=== PATIENT | male | born 1955 | race Caucasian/White ===

== ENCOUNTER 2016-10-10 05:43 | Emergency (ER) | payer OTHER ==
--- NOTE | 2016-10-10 05:51 | ED Physician Documentation ---
PD HPI ABD PAIN - Stated complaint Stated Complaint: RT FLANK PAIN - History obtained from History obtained from: Patient - History of Present Illness Timing - onset: Last night Timing - duration: Hours Timing - details: Abrupt onset, Still present (worsened even more and moving down toward right side abdomen.) Quality: Aching, Sharp, Pain Location: RLQ Radiation: Right flank Improved by: No: Eating, Position, Meds (had leftover 2 percocet from kidney stone a year ago but did not help with the pain) Worsened by: No: Eating Associated symptoms: Nausea. No: Fever, Vomiting, Diarrhea, Constipation Similar symptoms before: Diagnosis (kidney stone a year ago, thatdid need basket retrival by Urologist in [place].) Review of Systems Constitutional: denies: Fever, Chills Nose: denies: Rhinorrhea / runny nose, Congestion Throat: denies: Sore throat Cardiac: denies: Chest pain / pressure Respiratory: denies: Cough GI: reports: Abdominal Pain, Nausea. denies: Vomiting, Constipation, Diarrhea : denies: Dysuria, Frequency, Discharge Skin: denies: Rash, Lesions Neurologic: denies: Near syncope PD PAST MEDICAL HISTORY - Past Medical History Cardiovascular: Hypertension Respiratory: None Endocrine/Autoimmune: None GI: None : Kidney stones HEENT: None Psych: None Musculoskeletal: None Derm: None - Past Surgical History General: Colonoscopy - Present Medications Home Medications: Ambulatory Orders Medication Instructions Recorded Confirmed Atenolol 50 mg ORAL DAILY 02/25/15 02/25/15 HYDROcod/ACETAM 5/325 [[place] 5/325] 1 - 2 ea PO Q6H PRN #15 tablet 10/02/15 Tamsulosin [Flomax] 0.4 mg PO DAILY #7 capsule 10/02/15 HYDROmorphone [Dilaudid] 2 mg PO Q4H PRN #10 tablet 10/10/16 Hydrocodone/Acetaminophen [[place] 1 each PO Q4H PRN #20 tablet 10/10/16 7.5-325 Tablet] Ondansetron Odt [Zofran] 4 mg TL Q6H PRN #15 tablet 10/10/16 Tamsulosin [Flomax] 0.4 mg PO DAILY #7 capsule 10/10/16 - Allergies Allergies/Adverse Reactions: Allergies Allergy/AdvReac Type Severity Reaction Status Date / Time No Known Drug Allergies Allergy Verified 10/02/15 09:59 - Social History Does the pt smoke?: No Smoking Status: Never smoker Does the pt drink ETOH?: Yes Does the pt have substance abuse?: No - Immunizations Immunizations are current?: Yes PD ED PE NORMAL - Vitals Vital signs reviewed: Yes - General General: Alert and oriented X 3, Well developed/nourished, Other (appears in considerable pain) - Cardiac Cardiac: RRR, No murmur - Respiratory Respiratory: Clear bilaterally - Abdomen Abdomen: Normal bowel sounds, Soft, Non distended, No organomegaly, Other (mild tender right abdomen, though palpation does not affect the pain much.) - Male Male : Deferred - Rectal Rectal: Deferred - Back Back: Other (right CVA tender to percussion) - Derm Derm: Normal color, Warm and dry, No rash - Extremities Extremities: No edema, No calf tenderness / cord - Neuro Neuro: Alert and oriented X 3, No motor deficit, Normal speech Results - Vitals Vitals: Vital Signs - 24 hr 10/10/16 10/10/16 05:50 07:14 Temperature 36.8 C Heart Rate 68 68 Respiratory 20 16 Rate Blood Pressure 157/89 H 156/83 H O2 Saturation 99 100 Oxygen O2 Source Room air - Labs Labs: Laboratory Tests 10/10/16 05:53 Urine Color YELLOW Urine Clarity HAZY Urine pH 6.0 Ur Specific [place] 1.025 Urine Protein TRACE Urine Glucose (UA) NEGATIVE Urine Ketones TRACE Urine Occult Blood LARGE H Urine Nitrite NEGATIVE Urine Bilirubin NEGATIVE Urine Urobilinogen 0.2 (NORMAL) Ur Leukocyte Esterase NEGATIVE Urine RBC TNTC H Urine WBC 4-5 Ur Squamous Epith Cells RARE Squamous Urine Crystals 0-2 Calcium Oxalate Urine Bacteria None Seen Urine Mucus Marked Strands Ur Microscopic Review INDICATED Urine Culture Comments NOT INDICATED - Rads (name of study) KUB CT Radiology: Prelim report reviewed, EMP read contemporaneously (5 mm stone in distal right ureter with moderate obstruction. ) PD MEDICAL DECISION MAKING - ED course Complexity details: reviewed results, re-evaluated patient (improved pretty well with IV meds, and is comfortable. ), considered differential, d/w patient Departure - Departure Disposition: 01 Home, Self Care Clinical Impression: Ureterolithiasis Abdominal pain Qualifiers: Abdominal location: right lower quadrant Qualified Code(s): R10.31 - Right lower quadrant pain Condition: Stable Record reviewed to determine appropriate education?: Yes Instructions: ED Stone Renal W Colic Follow-Up: Luis Antonio Rose MD [Primary Care Provider] - Prescriptions: HYDROmorphone [Dilaudid] 2 mg PO Q4H PRN #10 tablet PRN Reason: Pain Tamsulosin [Flomax] 0.4 mg PO DAILY #7 capsule Hydrocodone/Acetaminophen [[place] 7.5-325 Tablet] 1 each PO Q4H PRN #20 tablet PRN Reason: Pain Ondansetron Odt [Zofran] 4 mg TL Q6H PRN #15 tablet PRN Reason: Nausea / Vomiting Comments: Maintain adequate hydration. Ibuprofen or Naproxen twice daily for the next 3-5 days. Flomax daily to try to help relaxation of the muscles at the end of the ureter. Add Tylenol for mild pain and then either Hydrocodone or Hydromorphone every 3-4 hours for worse pain. Use Ondansatron for nausea if needed. Call the Urologist you have seen and see if they want to have you make an appt or just wait and see if you pass it in the next couple of days. Return if worse pain again despite oral medication. The stone is in the distal ureter almost to the bladder and is 4-5 mm width, so should be passable in the short term. Discharge Date/Time: 10/10/16 07:43
[2016-10-10] MEDS ORDERED: SODIUM CHLORIDE 0.9% 1,000 ML IV ONE ×2 (05:59→07:07)
[2016-10-10] MEDS ORDERED: KETOROLAC 60 MG/2 ML VIAL IVP STA (05:59)
[2016-10-10] MEDS ORDERED: HYDROmorphone 1 MG/ML SYRINGE IVP STA ×2 (05:59→07:35)
[2016-10-10] MEDS ORDERED: ONDANSETRON 4 MG/2 ML VIAL IVP STA (05:59)
[2016-10-10] MEDS ORDERED: ONDANSETRON 4 MG/2 ML VIAL ONE (06:02)
[2016-10-10] MEDS ORDERED: KETOROLAC 30 MG/ML VIAL ONE (06:02)
[2016-10-10] MEDS ORDERED: HYDROmorphone 1 MG/ML SYRINGE ONE ×2 (06:02→07:34)
[2016-10-10 06:29] LABS: BILIRUBIN,URINE NEGATIVE (NEGATIVE)
[2016-10-10 06:30] LABS: UA w/ MICROSCOPIC CHARGE YES
[2016-10-10 06:47] LABS: UR CULTURE IF IND NOT INDICATED
--- NOTE | 2016-10-10 07:04 | CT Report ---
EXAM: CT ABDOMEN AND PELVIS (CT KUB) EXAM DATE: 10/10/2016 06:41 AM. CLINICAL HISTORY: Right-sided flank pain radiating to the right side of the abdomen. COMPARISONS: 10/02/2015. TECHNIQUE: Routine axial helical CT imaging was performed through the abdomen and pelvis without IV c ontrast. Reconstructions: Coronal and sagittal. In accordance with CT protocol optimization, one or more of the following dose reduction techniques w ere utilized for this exam: automated exposure control, adjustment of mA and/or KV based on patient s ize, or use of iterative reconstructive technique. FINDINGS: Right Kidney/Ureter: Moderate to severe right hydroureteronephrosis is present, due to and obstruct a nd 8.0 x 5.1 x 5.1 mm right distal ureteral stone just proximal to the UVJ. There is associated moder ate amount of right-sided perinephric fat stranding. No additional right-sided intrarenal stone. No d efinite renal mass within the confines of a non-contrast exam. Left Kidney/Ureter: No stones. No hydronephrosis or hydroureter. No definite renal mass within the co nfines of a non-contrast exam. Abdominal Solid Organs: Abdominal parenchymal organs are without significant abnormality within the c onfines of a noncontrast exam. Bowel: No evidence of bowel obstruction. Appendix: Normal. Lymph Nodes: No definite pathologic lymphadenopathy. Fluid: No significant ascites. Vasculature: Normal caliber aorta. Pelvis: No bladder stones. Visualized pelvic organs are without significant abnormality within the co nfines of a noncontrast exam. Bones: No definite suspicious bony lesions demonstrated. Lower Chest: No significant lung base consolidation or effusion. IMPRESSION: 1. Moderate to severe right hydroureteronephrosis due to an obstructing 8.0 x 5.1 x 5.1 mm right dist al ureteral stone, just proximal to the UVJ. There is associative moderate right-sided perinephric fl uid. 2. No intrarenal stones on the right or left demonstrated at this time. 3. No bowel obstruction. Normal appendix. [facility] Referring Provider Line: [phone] SITE ID: [id number]
[2016-10-10] MEDS ORDERED: DEXAMETHASONE 10 MG/ML VIAL IVP STA (07:05)
[2016-10-10] MEDS ORDERED: DEXAMETHASONE 10 MG/ML VIAL ONE (07:07)
[2016-10-10] MEDS ORDERED: SODIUM CHLORIDE FLUSH 0.9% 10 ML SYRINGE IVP ONE (07:07)
[2016-10-10 07:16] VITALS: BP 156/83
== END 2016-10-10 07:43 | disposition home or self-care (01) ==
LOC: ED 05:43
DX: N13.2 Hydronephrosis with renal and ureteral calculous obstruction (principal); R10.31 Right lower quadrant pain; I10 Essential (primary) hypertension; Z87.442 Personal history of urinary calculi
CPT/HCPCS: 36415; 74176; 81001; 96374; 96375; 96376; 99283; 99284; J1170; 81003; 87086

== ENCOUNTER 2017-01-02 08:51 | Outpatient (CLI) | payer OTHER ==
[2017-01-02 18:11] LABS: ALBUMIN/GLOBULIN RATIO 1.5 (1.0-2.2); BILIRUBIN,TOTAL 1.1 mg/dL (0.2-1.0); BUN - BLOOD UREA NITROGEN 23 mg/dL (6-20); CALCIUM 9.2 mg/dL (8.5-10.3); CARBON DIOXIDE - CO2 30 mmol/L (21-32); CHLORIDE 103 mmol/L (101-111); CHOLESTEROL 206 mg/dL; CREATININE 0.9 mg/dL (0.6-1.2); GFR - MDRD 86 (>89); GLUCOSE 113 mg/dL (70-100); HDL CHOLESTEROL 68 mg/dL; POTASSIUM 4.3 mmol/L (3.5-5.0); SODIUM 138 mmol/L (135-145); TRIGLYCERIDES 31 mg/dL
[2017-01-02 18:37] LABS: HEMOGLOBIN A1C 0.52 g/dL
[2017-01-02 18:38] LABS: LDL CHOLESTEROL,DIRECT 124 mg/dL
== END 2017-01-02 08:52 | disposition home or self-care (01) ==
LOC: LAB.F 08:51
PROVIDERS: ATTEND Family Medicine
DX: I10 Essential (primary) hypertension (principal); R73.9 Hyperglycemia, unspecified; Z12.5 Encounter for screening for malignant neoplasm of prostate
CPT/HCPCS: 36415; 80053; 80061; 83036; 84153

== ENCOUNTER 2018-01-08 08:40 | Outpatient (CLI) | payer OTHER ==
[2018-01-08 10:53] LABS: ALBUMIN 4.4 g/dL (3.2-5.5); ALBUMIN/GLOBULIN RATIO 1.7 (1.0-2.2); ALKALINE PHOSPHATASE 64 IU/L (42-121); ALT ALANINE AMINOTRANSFERASE 23 IU/L (10-60); AST ASPARTATE AMINOTRANSFERASE 22 IU/L (10-42); BILIRUBIN,TOTAL 1.4 mg/dL (0.2-1.0); BUN - BLOOD UREA NITROGEN 22 mg/dL (6-20); CALCIUM 9.1 mg/dL (8.5-10.3); CARBON DIOXIDE - CO2 29 mmol/L (21-32); CHLORIDE 102 mmol/L (101-111); CHOLESTEROL 217 mg/dL; CREATININE 0.8 mg/dL (0.6-1.2); GFR - MDRD 99 (>89); GLUCOSE 128 mg/dL (70-100); HDL CHOLESTEROL 73 mg/dL; LDL CHOLESTEROL,CALCULATED 133 mg/dL; LDL/HDL RATIO 1.8 (<3.6); SODIUM 138 mmol/L (135-145); VLDL CHOLESTEROL 11 mg/dL
[2018-01-08 10:56] LABS: HB2 TOTAL 15.9 g/dL; HEMOGLOBIN A1C 0.53 g/dL; HEMOGLOBIN A1C % 5.2 % (4.6-6.2)
[2018-01-08 11:03] LABS: BILIRUBIN,URINE NEGATIVE (NEGATIVE); GLUCOSE, URINE (UA) NEGATIVE (NEGATIVE); KETONES,URINE (UA) NEGATIVE (NEGATIVE); LEUKOCYTE ESTERASE, URINE NEGATIVE (NEGATIVE); NITRITE,URINE NEGATIVE (NEGATIVE); OCCULT BLOOD,URINE NEGATIVE (NEGATIVE); PROTEIN,URINE NEGATIVE (NEGATIVE); UROBILINOGEN,URINE 0.2 (NORMAL) E.U./dL (NORMAL)
[2018-01-08 11:07] LABS: CLARITY,URINE CLEAR (CLEAR)
[2018-01-08 11:20] LABS: BACTERIA,URINE Rare /HPF (None Seen); RBC,URINE 0-5 /HPF (0-5); SQUAMOUS EPITHELIAL CELL,UR RARE Squamous (<= Few)
== END 2018-01-08 08:41 | disposition home or self-care (01) ==
LOC: LAB.F 08:40
PROVIDERS: ATTEND Internal Medicine
DX: I10 Essential (primary) hypertension (principal); R73.9 Hyperglycemia, unspecified; Z12.5 Encounter for screening for malignant neoplasm of prostate
CPT/HCPCS: 36415; 80053; 80061; 81001; 83036; 83721; 84153

== ENCOUNTER 2019-01-01 11:25 | Outpatient (CLI) | payer OTHER ==
[2019-01-01 17:53] LABS: ALBUMIN 4.4 g/dL (3.2-5.5); ALBUMIN/GLOBULIN RATIO 1.5 (1.0-2.2); ALKALINE PHOSPHATASE 59 IU/L (42-121); ALT ALANINE AMINOTRANSFERASE 22 IU/L (10-60); AST ASPARTATE AMINOTRANSFERASE 20 IU/L (10-42); BILIRUBIN,TOTAL 1.7 mg/dL (0.2-1.0); BUN - BLOOD UREA NITROGEN 21 mg/dL (6-20); CALCIUM 9.4 mg/dL (8.5-10.3); CARBON DIOXIDE - CO2 28 mmol/L (21-32); CHLORIDE 104 mmol/L (101-111); CHOL/HDL RATIO 2.6 (<5.0); CHOLESTEROL 209 mg/dL; CREATININE 0.7 mg/dL (0.6-1.2); GFR - MDRD 115 (>89); GLUCOSE 100 mg/dL (70-100); HDL CHOLESTEROL 80 mg/dL; LDL CHOLESTEROL,CALCULATED 121 mg/dL; LDL/HDL RATIO 1.5 (<3.6); SODIUM 141 mmol/L (135-145); TOTAL PROTEIN 7.3 g/dL (6.7-8.2); VLDL CHOLESTEROL 8 mg/dL
[2019-01-01 18:12] LABS: HB2 TOTAL 14.9 g/dL; HEMOGLOBIN A1C 0.5 g/dL; HEMOGLOBIN A1C % 5.2 % (4.6-6.2)
== END 2019-01-01 11:26 | disposition home or self-care (01) ==
LOC: LAB.S 11:25
PROVIDERS: ATTEND Internal Medicine
DX: Z00.00 Encounter for general adult medical examination without abnormal findings (principal); Z12.5 Encounter for screening for malignant neoplasm of prostate
CPT/HCPCS: 36415; 80053; 80061; 83036; 83721; 84153

== ENCOUNTER 2019-12-26 08:34 | Outpatient (CLI) | payer OTHER ==
[2019-12-26 15:23] LABS: CALCIUM 8.9 mg/dL (8.5-10.3); CREATININE 0.9 mg/dL (0.6-1.2)
== END 2019-12-26 08:35 | disposition home or self-care (01) ==
LOC: LAB.S 08:34
PROVIDERS: ATTEND Internal Medicine
DX: I10 Essential (primary) hypertension (principal); Z12.5 Encounter for screening for malignant neoplasm of prostate
CPT/HCPCS: 36415; 80048; 84153

== ENCOUNTER 2021-01-05 08:48 | Outpatient (CLI) | payer OTHER ==
[2021-01-05 15:10] LABS: BASOPHILS % (AUTO) 0.7 %; EOSINOPHILS # (AUTO) 0.1 10^3/uL (0.0-0.7); EOSINOPHILS % (AUTO) 1.2 %; HCT - HEMATOCRIT 44.5 % (42.0-52.0); HGB - HEMOGLOBIN 14.6 g/dL (14.0-18.0); LYMPHOCYTES # (AUTO) 1.1 10^3/uL (1.5-3.5); LYMPHOCYTES % (AUTO) 27.1 %; MEAN CORPUSCULAR HEMOGLOBIN 30.9 pg (27.0-31.0); MEAN CORPUSCULAR HGB CONC 32.8 g/dL (32.0-36.0); MEAN CORPUSCULAR VOLUME 94.3 fL (80.0-94.0); MONOCYTES # (AUTO) 0.5 10^3/uL (0.0-1.0); MONOCYTES % (AUTO) 12.4 %; NEUTROPHILS # (AUTO) 2.4 10^3/uL (1.5-6.6); NEUTROPHILS % (AUTO) 58.4 %; PLT - PLATELET COUNT 220 10^3/uL (130-450); RED BLOOD COUNT 4.72 10^6/uL (4.70-6.10); RED CELL DISTRIBUTION WIDTH 11.9 % (12.0-15.0); WHITE BLOOD COUNT 4.1 x10^3/uL (4.8-10.8)
[2021-01-05 15:29] LABS: CHOL/HDL RATIO 2.9 (<5.0); CHOLESTEROL 214 mg/dL; HDL CHOLESTEROL 73 mg/dL; TRIGLYCERIDES 38 mg/dL
== END 2021-01-05 08:49 | disposition home or self-care (01) ==
LOC: LAB.S 08:48
PROVIDERS: ATTEND Internal Medicine
DX: R97.20 Elevated prostate specific antigen [PSA] (principal); Z13.220 Encounter for screening for lipoid disorders; Z79.899 Other long term (current) drug therapy; I10 Essential (primary) hypertension
CPT/HCPCS: 36415; 80061; 83721; 84153; 85025

== ENCOUNTER 2021-08-16 12:28 | Day surgery (SDC) | payer OTHER ==
[2021-08-16] MEDS ORDERED: LACTATED RINGERS 1,000 ML IV ONE ×2 (13:09→14:34)
[2021-08-16] MEDS ORDERED: PROPOFOL 500 MG/50 ML 500 MG/50 ML VIAL ONE (13:27)
[2021-08-16] MEDS ORDERED: MIDAZOLAM 2 MG/2 ML VIAL ONE (13:41)
[2021-08-16] MEDS ORDERED: fentaNYL 100 MCG/2 ML VIAL ONE (13:41)
--- NOTE | 2021-08-16 13:54 | ANESTHESIA ---
Pre-Anesthesia VS, & Labs - Diagnosis history of colon polyp - Procedure colonoscopy Vital Signs: Temp Pulse Resp BP Pulse Ox 36.3 C L 59 L 16 129/80 100 08/16/21 12:43 08/16/21 12:43 08/16/21 12:43 08/16/21 12:43 08/16/21 12:43 Height: 5 ft 10 in Weight (kg): 76.8 kg Body Mass Index: 24.3 BMI Classification: Healthy weight - NPO >8 hours Home Medications and Allergies Atenolol 50 mg ORAL DAILY 02/25/15 Allergies/Adverse Reactions: Allergies Allergy/AdvReac Type Severity Reaction Status Date / Time No Known Drug Allergies Allergy Verified 08/15/21 13:46 Anes History & Medical History - Anesthetic History Anesthesia Complications: reports: No previous complications - Medical History Cardiovascular: reports: Hypertension Pulmonary: reports: None Gastrointestinal: reports: None Urinary: reports: Kidney stones Neuro: reports: None Musculoskeletal: reports: None Endocrine/Autoimmune: reports: None Blood Disorders: reports: None Skin: reports: None Smoking Status: Never smoker Psychosocial: reports: Alcohol (2- 4 beers per week), Cannabis (weekly use) History of Cancer?: No - Surgical History General: reports: Colonoscopy Urologic: reports: Ureterolithotomy (stones) Exam General: Alert, Oriented x3, Cooperative, No acute distress Dental: WNL Mouth Openin Fingerbreadth Neck Mobility: Normal Mallampati classification: III Thyromental Distance: 4-6 cm Mental/Cognitive Status: Alert/Oriented X3, Normal for patient Plan Anesthesia Type: Total IV Consent for Procedure(s) Verified and Reviewed: Yes Code Status: Attempt Resuscitation ASA classification: 2-Mild systemic disease Is this case an emergency?: No
[2021-08-16 14:51] VITALS: BP 118/87
--- NOTE | 2021-08-16 16:24 | ANESTHESIA POST OP EVALUATION ---
Anesthesia Post Eval - Post Anesthesia Eval Vitals: Last Vital Signs Temp 37.3 C 08/16/21 14:31 Pulse 76 08/16/21 14:49 Resp 20 08/16/21 14:49 BP 118/87 H 08/16/21 14:49 Pulse Ox 99 08/16/21 14:49 CV Function Including HR & BP: Stable Pain Control: Satisfactory Nausea & Vomiting: Negative Mental Status: Baseline Respiratory Status: Airway Patent Hydration Status: Satisfactory Anesthesia Complications: None
== END 2021-08-16 12:29 | disposition home or self-care (01) ==
LOC: SDS 12:28
PROVIDERS: ATTEND Surgery
PROC: 0DBN8ZX Excision of Sigmoid Colon, Via Natural or Artificial Opening Endoscopic, Diagnostic (ICD-10-PCS; principal; 2021-08-16 14:00)
DX: Z12.11 Encounter for screening for malignant neoplasm of colon (principal); D12.5 Benign neoplasm of sigmoid colon; K57.30 Diverticulosis of large intestine without perforation or abscess without bleeding; K64.4 Residual hemorrhoidal skin tags; K64.8 Other hemorrhoids; I10 Essential (primary) hypertension
CPT/HCPCS: 45380; J7120

== ENCOUNTER 2022-08-09 09:38 | Outpatient (CLI) | payer OTHER ==
[2022-08-09 15:07] LABS: ALBUMIN 4.1 g/dL (3.2-5.5); BILIRUBIN,DIRECT 0.3 mg/dL (0.1-0.5); BILIRUBIN,TOTAL 1.4 mg/dL (0.2-1.0); CREATININE 0.8 mg/dL (0.6-1.2)
== END 2022-08-09 09:39 | disposition home or self-care (01) ==
LOC: LAB.S 09:38
PROVIDERS: ATTEND Physician Assistant Medical
DX: B35.1 Tinea unguium (principal)
CPT/HCPCS: 36415; 80076; 82565; 84520

== ENCOUNTER 2022-09-28 08:53 | Outpatient (CLI) | payer MEDICARE, OTHER ==
[2022-09-28 15:18] LABS: ALBUMIN 4.1 g/dL (3.2-5.5); BILIRUBIN,DIRECT 0.2 mg/dL (0.1-0.5); BILIRUBIN,TOTAL 1.1 mg/dL (0.2-1.0); CREATININE 0.9 mg/dL (0.6-1.2); TOTAL PROTEIN 7.1 g/dL (6.7-8.2)
== END 2022-09-28 08:54 | disposition home or self-care (01) ==
LOC: LAB.S 08:53
PROVIDERS: ATTEND Physician Assistant Medical
DX: B35.1 Tinea unguium (principal)
CPT/HCPCS: 36415; 80076; 82565; 84520

== ENCOUNTER 2023-01-21 12:04 | Emergency (ER) | payer MEDICARE, OTHER ==
--- OUTSIDE RECORDS SUMMARY | 2023-01-21 12:41 | EXTERNAL MEDICAL SUMMARY RPT | Continuity of Care Document ---
Author Name Unknown Address [address] [place] [address] Phone Organization [facility] Address [address] [place] [address] Phone Care Team Providers Care Court Orderly Name Role Phone Unavailable Unavailable Unavailable Zeeshan Thomas-Shanice Fajardo Unavailable Unavailable Allergies and Intolerances date description facility reaction severity Medications date description facility 2022-12-30 00:00 amoxicillin-pot clavulanate [facility] 2022-12-30 00:00 amoxicillin-pot clavulanate [facility] 2023-01-02 00:00 terbinafine hcl [facility] 2023-01-02 00:00 terbinafine hcl [facility] 2023-01-02 00:00 terbinafine hcl [facility] 2022-12-30 00:00 amoxicillin-pot clavulanate [facility] 2023-01-02 00:00 terbinafine hcl [facility] 2022-12-30 00:00 amoxicillin-pot clavulanate [facility] Problems date description facility 2022-12-30 00:00 Impacted cerumen [facility] 2022-12-30 00:00 Impacted cerumen, left ear [facility] 2022-12-30 00:00 Chronic maxillary sinusitis [facility] 2023-01-02 00:00 Benign essential hypertension [facility] 2023-01-02 00:00 Essential (primary) hypertensio n [facility] Procedures date description facility 2022-12-30 00:00 Visit Code Hold [facility] 2023-01-02 00:00 Visit Code Hold [facility] 2022-12-30 00:00 Ear Lavage, unilateral [facility] 2023-01-02 00:00 Ear Lavage, unilateral [facility] Social History date description facility 2023-01-02 00:00 Never smoker [facility] Vital Signs date measurement value units 2023-01-02 00:00 BMI 25.02 kg/m2 2023-01-02 00:00 BP_diastolic 83 mmHg 2023-01-02 00:00 BP_systolic 142 mmHg 2023-01-02 00:00 heart_rate 53 /min 2023-01-02 00:00 height_metric 178.44 cm 2023-01-02 00:00 height_standard 70.25 in 2023-01-02 00:00 respiration_rate 16 /min 2023-01-02 00:00 temperature_metric 36.5 C 2023-01-02 00:00 temperature_standard 97.7 F 2023-01-02 00:00 weight_metric 79.38 kg 2023-01-02 00:00 weight_standard 175 lb
--- NOTE | 2023-01-21 12:55 | ED Physician Documentation ---
PD HPI MALE - Stated complaint Stated Complaint: - Chief complaint Chief Complaint: General - History obtained from History obtained from: Patient - History of Present Illness Timing - onset: How many days ago (6) Timing - duration: Days (6) Timing - details: Abrupt onset, Still present Associated symptoms: Unable to urinate (he and wer going on cruise outside passage to [place]. he started with some congestion and was Rx Keflex and some sudafed for it. He then started on the cruise and was some seasick so placed scopolamine patch. He then was having trouble urinating and weak stream then none.), Other (he went to med clinic on the ship and had ayala placed with 900 ml out. tried it with ayala then taken out but again could not urinate and it was placed in again the follow morning. Has had it in the last 5 days. No prostate meds. Was on antibiotic for sinus infection Keflex.) Review of Systems Constitutional: denies: Fever, Chills Nose: reports: Congestion, Sinus pressure / pain (improved). denies: Rhinorrhea / runny nose Throat: denies: Sore throat Respiratory: denies: Cough PD PAST MEDICAL HISTORY - Past Medical History Cardiovascular: Hypertension Respiratory: None Neuro: None Endocrine/Autoimmune: None GI: None : Kidney stones HEENT: None Psych: None Musculoskeletal: None Derm: None - Past Surgical History General: Colonoscopy - Present Medications Home Medications: Ambulatory Orders Medication Instructions Recorded Confirmed Atenolol 50 mg ORAL DAILY 02/25/15 01/21/23 Tamsulosin [Flomax] 0.4 mg PO DAILY #15 cap 01/21/23 - Allergies Allergies/Adverse Reactions: Allergies Allergy/AdvReac Type Severity Reaction Status Date / Time No Known Drug Allergies Allergy Verified 08/15/21 13:46 - Social History Does the pt smoke?: No Smoking Status: Never smoker Does the pt drink ETOH?: Yes Does the pt have substance abuse?: No - Immunizations Immunizations are current?: Yes PD ED PE NORMAL - Vitals Vital signs reviewed: Yes - General General: Alert and oriented X 3, No acute distress, Well developed/nourished - Abdomen Abdomen: Soft, Non tender - Derm Derm: Normal color, Warm and dry - Neuro Neuro: Alert and oriented X 3, No motor deficit, Normal speech Results - Vitals Vitals: Vital Signs - 24 hr 01/21/23 01/21/23 12:17 14:04 Temperature 36.7 C 36.1 C L Heart Rate 72 62 Respiratory 20 15 Rate Blood Pressure 136/72 H 142/85 H O2 Saturation 99 100 Oxygen O2 Source Room air PD Medical Decision Making - ED course Complexity details: considered differential (had urinary retention after use of sudafed for congestion and scopolamine for seasickness. Has had ayala in place for several days. Would like to try it out. Is not on prostate meds. Prior was having some hesitancy and weak stream. ), d/w patient ED course: here for ayala removal, s/p urinary retention corresponding with sudafed for sinus symptoms. and scopolamine for seasick. But had had weak stream, some noct urnal awakening for urination prior, so presume some underlying BPH. Add Tamsulosin, and can try ayala removal. He can return if unable to urinate. Can refer to Urology for further eval of prostate/etc. Has had ayala in past 5-6 days so I did not get PSA as would be likely falsely elevated due to the local irritation. Departure - Departure Disposition: Home, Self Care Clinical Impression: Encounter for Ayala catheter removal, BPH associated with nocturia Condition: Stable Record reviewed to determine appropriate education?: Yes Follow-Up: Shanice Byers ARNP [Primary Care Provider] - Hermes Matt MD [Provider Admit Priv/Credential] - Prescriptions: Tamsulosin [Flomax] 0.4 mg PO DAILY #15 cap Comments: Normal hydration through the rest of the day or even drink a little extra fluids but try not to overdo per se. This will allow for healing of the bladder and will be more evident earlier through the evening if you are unable to urinate again. Return to the ER if difficulties urinating/unable to urinate. You will likely experience some degree of decreased stream and forcefulness of urinating due to the recent catheter and presumed enlarged prostate. But as long as you are able to get urine out and feel comfortable then that is reasonable. We would make sense to take a prostate medicine such as Flomax/tamsulosin daily for the next couple of weeks anyway. Follow-up with urology in the near future, call for an appointment. They will likely want to investigate little bit more if you have underlying significant enlarged prostate that needs any further treatment or interventions. Continue any other usual medicines except of course no [id number] decongestants or motion sickness medicine etc. I sent a prescription to [facility] in [place]. Forms: PCP List Discharge Date/Time: 01/21/23 14:05
[2023-01-21] MEDS ORDERED: TAMSULOSIN 0.4 MG CAPSULE PO STA (13:25)
[2023-01-21 14:13] VITALS: BP 142/85; O2SAT 100
== END 2023-01-21 14:05 | disposition home or self-care (01) ==
LOC: ED 12:04
DX: N40.1 Benign prostatic hyperplasia with lower urinary tract symptoms (principal); R35.1 Nocturia; I10 Essential (primary) hypertension; Z79.899 Other long term (current) drug therapy
CPT/HCPCS: 99282; 99284; A9270

== ENCOUNTER 2023-01-22 22:09 | Emergency (ER) | payer MEDICARE, OTHER ==
[2023-01-22 22:24] VITALS: BP 150/90; O2SAT 98
--- NOTE | 2023-01-22 23:00 | ED Physician Documentation ---
PD HPI MALE - Stated complaint Stated Complaint: - Chief complaint Chief Complaint: Abd Pain - History obtained from History obtained from: Patient - Additional information Additional information: HPI from patient. Patient complains of urinary retention, manifest as urge to urinate and suprapubic distention and pain, despite ability to urinate. Patient had a Ayala catheter placed 1 week ago while on a cruise. This was the first time he had a catheter placed. The catheter was placed due to inability to urinate. The patient says that he has noticed decreasing force in his stream over the past few years, but had never had urinary retention until 1 week ago. It has been surmised that his use of Sudafed as well as a scopolamine patch during the cruise might have been the inciting event leading to the urinary retention. The patient was treated and released from this emergency department ([facility]) yesterday, having presented asymptomatic but requesting removal of the Ayala catheter. The catheter was removed. He was prescribed Flomax recently, has taken 1 dose daily for the past 2 days thus far. The patient says that during the day yesterday, after the catheter was removed, he was able to urinate, although he had sensation of incomplete voiding. Furthermore, he had decreasing urine output overnight and this morning despite increasing urge to urinate. He says that he has not had any significant urine output since early this morning. Denies fever, denies dysuria. Patient has an appointment scheduled with his urologist for Sunday (in 2 days). Review of Systems : reports: Unable to Void. denies: Dysuria, Frequency, Incontinent, Hematuria PD PAST MEDICAL HISTORY - Past Medical History Cardiovascular: Hypertension Respiratory: None Neuro: None Endocrine/Autoimmune: None GI: None : Kidney stones HEENT: None Psych: None Musculoskeletal: None Derm: None - Past Surgical History General: Colonoscopy - Present Medications Home Medications: Ambulatory Orders Medication Instructions Recorded Confirmed Atenolol 50 mg ORAL DAILY 02/25/15 01/22/23 Tamsulosin [Flomax] 0.4 mg PO DAILY #15 cap 01/21/23 01/22/23 - Allergies Allergies/Adverse Reactions: Allergies Allergy/AdvReac Type Severity Reaction Status Date / Time amoxicillin Allergy Hives Verified 01/22/23 22:12 - Social History Does the pt smoke?: No Smoking Status: Never smoker Does the pt drink ETOH?: Yes Does the pt have substance abuse?: No - Immunizations Immunizations are current?: Yes PD ED PE NORMAL - Vitals Vital signs reviewed: Yes - General General: Alert and oriented X 3, No acute distress, Well developed/nourished, Other (exam performed after ED RN placed ayala catheter) - Abdomen Abdomen: Soft, Non tender, Non distended Results - Vitals Vitals: Vital Signs - 24 hr 01/22/23 22:12 Temperature 36.7 C Heart Rate 82 Respiratory 20 Rate Blood Pressure 150/90 H O2 Saturation 98 Oxygen O2 Source Room air PD Medical Decision Making - ED course Complexity details: reviewed old records (reviewed ED MD note from yesterday's ED visit), considered differential, d/w patient ED course: ED RN performed bedside bladder scan, with result of over 900 cc. She then placed a Ayala catheter there was brisk return of clear, yellow urine with total urine output of 1100 cc. My exam is performed subsequent to the placement of the Ayala catheter. At that time, he is in NAD and has an unremarkable exam. Patient says he feels remarkably improved after placement of the Ayala catheter. No tests indicated from an emergent standpoint at this time. He has follow-up already arranged with his urologist in 2 days. He is discharged with the catheter in place. Departure - Departure Disposition: 01 Home, Self Care Clinical Impression: Urinary retention Condition: Good Instructions: ED Catheter Care Ayala, ED Retention Urinary Male Comments: Follow-up with your urologist in 2 days as scheduled. Forms: PCP List
--- OUTSIDE RECORDS SUMMARY | 2023-01-22 23:10 | EXTERNAL MEDICAL SUMMARY RPT | Continuity of Care Document ---
Author Name Unknown Address [address] [place] [address] Phone Organization [facility] Address [address] [place] [address] Phone Care Team Providers Care Spinning Frame Cleaner Name Role Phone Unavailable Unavailable Unavailable Shanice Seo Unavailable Unavailable Allergies and Intolerances date description [...] [facility] Procedures date description facility 2022-12-30 00:00 Visit Code Hold [facility] 2023-01-02 00:00 Visit Code Hold [facility] 2022-12-30 00:00 Ear Lavage, unilateral [facility] 2023-01-02 00:00 Ear Lavage, unilateral [facility] Social History date description facility 2023-01-02 00:00 Never smoker [facility] Vital Signs date measurement value units 2023-01-02 [...]
== END 2023-01-23 00:03 | disposition home or self-care (01) ==
LOC: ED 22:09
DX: R33.9 Retention of urine, unspecified (principal); I10 Essential (primary) hypertension; Z79.899 Other long term (current) drug therapy
CPT/HCPCS: 51702; 51798; 99283

== ENCOUNTER 2023-06-05 07:38 | Outpatient (CLI) | payer MEDICARE, OTHER ==
[2023-06-05 14:37] LABS: BASOPHILS % (AUTO) 0.8 %; EOSINOPHILS # (AUTO) 0.1 10^3/uL (0.0-0.7); EOSINOPHILS % (AUTO) 2.6 %; HCT - HEMATOCRIT 46.8 % (42.0-52.0); HGB - HEMOGLOBIN 15.2 g/dL (14.0-18.0); LYMPHOCYTES # (AUTO) 1.2 10^3/uL (1.5-3.5); LYMPHOCYTES % (AUTO) 29.8 %; MEAN CORPUSCULAR HEMOGLOBIN 30.3 pg (27.0-31.0); MEAN CORPUSCULAR HGB CONC 32.5 g/dL (32.0-36.0); MEAN CORPUSCULAR VOLUME 93.2 fL (80.0-94.0); MEAN PLATELET VOLUME 12.2 fL (7.4-11.4); MONOCYTES # (AUTO) 0.5 10^3/uL (0.0-1.0); MONOCYTES % (AUTO) 13.9 %; NEUTROPHILS # (AUTO) 2.1 10^3/uL (1.5-6.6); NEUTROPHILS % (AUTO) 52.6 %; PLT - PLATELET COUNT 198 10^3/uL (130-450); RED BLOOD COUNT 5.02 10^6/uL (4.70-6.10); WHITE BLOOD COUNT 3.9 x10^3/uL (4.8-10.8)
[2023-06-05 15:17] LABS: ALBUMIN 4.2 g/dL (3.2-5.5); ALBUMIN/GLOBULIN RATIO 1.8 (1.0-2.2); ALKALINE PHOSPHATASE 52 IU/L (42-121); ALT ALANINE AMINOTRANSFERASE 25 IU/L (10-60); AST ASPARTATE AMINOTRANSFERASE 25 IU/L (10-42); BILIRUBIN,TOTAL 2.5 mg/dL (0.2-1.0); BUN - BLOOD UREA NITROGEN 18 mg/dL (6-20); CALCIUM 9.3 mg/dL (8.5-10.3); CARBON DIOXIDE - CO2 29 mmol/L (21-32); CHLORIDE 103 mmol/L (101-111); CHOL/HDL RATIO 2.7 (<5.0); CHOLESTEROL 202 mg/dL; CREATININE 0.9 mg/dL (0.6-1.3); GFR - MDRD 85 (>89); GLUCOSE 111 mg/dL (74-104); HDL CHOLESTEROL 75 mg/dL; LDL CHOLESTEROL,CALCULATED 114 mg/dL; LDL/HDL RATIO 1.5 (<3.6); POTASSIUM 4.4 mmol/L (3.5-4.5); SODIUM 138 mmol/L (135-145); TOTAL PROTEIN 6.6 g/dL (6.4-8.9); TRIGLYCERIDES 63 mg/dL (48-352); VLDL CHOLESTEROL 13 mg/dL
[2023-06-05 15:49] LABS: THYROID STIMULATING HORMONE 1.75 uIU/mL (0.34-5.60)
== END 2023-06-05 07:39 | disposition home or self-care (01) ==
LOC: LAB.S 07:38
PROVIDERS: ATTEND Registered Nurse
DX: Z13.220 Encounter for screening for lipoid disorders (principal); Z79.899 Other long term (current) drug therapy; Z12.5 Encounter for screening for malignant neoplasm of prostate; Z13.29 Encounter for screening for other suspected endocrine disorder
CPT/HCPCS: 36415; 80053; 80061; 84443; 85025; G0103; 83721; 84153

== ENCOUNTER 2023-06-18 13:21 | Outpatient (CLI) | payer MEDICARE, OTHER ==
[2023-06-18 20:11] LABS: BILIRUBIN,DIRECT 0.27 mg/dL (0.03-0.18); BILIRUBIN,INDIRECT 1.3 mg/dL; BILIRUBIN,TOTAL 1.6 mg/dL (0.2-1.0)
== END 2023-06-18 13:22 | disposition home or self-care (01) ==
LOC: LAB.S 13:21
PROVIDERS: ATTEND Registered Nurse
DX: R17 Unspecified jaundice (principal)
CPT/HCPCS: 36415; 82247; 82248